=== PATIENT | male | born 1955 | race Two or more races ===

== ENCOUNTER 2023-07-02 21:07 | Emergency (ER) | payer SELFPAY ==
[~2023-07-02] VITALS: Ht 162.6 cm; Wt 61.1 kg
[2023-07-02 22:19] LABS: Basophils # (auto) 0 10 ^3/uL (0-0.2); Basophils % (auto) 0.5 % (0.0-2.0); Eosinophils # (auto) 0 10 ^3/uL (0-0.8); Eosinophils % (auto) 0.3 % (0.0-7.0); Hematocrit 40.7 % (41.0-53.0); Hemoglobin 12.9 g/dL (13.5-17.5); Lymphocytes # (auto) 0.5 10 ^3/uL (0.4-5.4); Lymphocytes % (auto) 11.7 % (10.0-50.0); Mean Corpuscular Hemoglobin 27.6 pg (28.0-32.0); Mean Corpuscular Hgb Conc. 31.8 g/dL (32.0-36.0); Monocytes # (auto) 0.4 10 ^3/uL (0-1.3); Monocytes % (auto) 9.8 % (0.0-12.0); Neutrophils # (auto) 3.5 10 ^3/uL (1.6-8.6); Neutrophils % (auto) 77.7 % (37.0-80.0); Nucleated Red Blood Cells % 0.1 %; Red Blood Cells 4.68 10^6/uL (4.5-5.90); Red Cell Distribution Width 15.7 % (11.8-14.3); White Blood Cell 4.5 10^3/uL (4.4-10.8)
[2023-07-02] MEDS: ACETAMINOPHEN 500 MG TAB PO ONE (22:29)
[2023-07-02] MEDS: DexAMETHasone SOD PHOS 10MG/1ML VIAL INJ IM ONE (22:29)
[2023-07-02] MEDS: ALBUTEROL SULF 2.5 MG/0.5ML(0.5%) NEB SOLN NEB ONE (22:30)
[2023-07-02] MEDS: IPRATROPIUM BROM 0.5 MG/2.5ML INH SOL NEB ONE (22:30)
[2023-07-02 22:32] LABS: Chloride 102 mmol/L (98-107); Potassium 4.4 mmol/L (3.5-5.1); Sodium 135 mmol/L (136-145)
[2023-07-02 22:33] LABS: Anion Gap 8 (5-15); Calcium 9.3 mg/dL (8.5-10.1); Carbon Dioxide 25 mmol/L (20-30)
[2023-07-02 22:38] LABS: BUN/Creatinine Ratio 21.6 (10.0-20.0); Blood Urea Nitrogen 19 mg/dL (9-23); Glucose 111 mg/dL (74-106)
[2023-07-02 22:39] LABS: Blood Alcohol < 3.0 mg/dL (<10)
[2023-07-02 23:07] LABS: COVID19 ANTIGEN SOFIA FIA NEGATIVE (NEGATIVE)
[2023-07-02 23:08] LABS: Rapid Influenza B Negative (Negative)
[2023-07-02 23:16] LABS: Rapid Influenza A Positive (Negative)
[2023-07-03] MEDS ORDERED: ACET500T58 PO (01:25)
[2023-07-03] MEDS ORDERED: TAMIFLU PO (01:25)
[2023-07-03] MEDS ORDERED: IBUP-1455 PO (01:25)
[2023-07-03] MEDS ORDERED: ZOFR4T PO (01:25)
[2023-07-03] MEDS: OSELTAMIVIR 75 MG CAP PO ONE (01:34)
[2023-07-03 04:06] VITALS: BP 107/63; PULSE 79; RESP 17; TEMP 97.7; O2SAT 94
[2023-07-04] MEDS ORDERED: PRED20TA2 PO (03:57)
[2023-07-04] MEDS ORDERED: BENZ200C64 PO (03:57)
[2023-07-04] MEDS ORDERED: ALBU108A5 IN (03:57)
== END 2023-07-03 04:07 | disposition home or self-care (01) ==
LOC: ER 21:07
DX: J10.1 Influenza due to other identified influenza virus with other respiratory manifestations (principal); F17.210 Nicotine dependence, cigarettes, uncomplicated; Z20.822 Contact with and (suspected) exposure to COVID-19
CPT/HCPCS: 36415; 71045; 80048; 80320; 83605; 83880; 85025; 87426; 87804; 93005; 94640; 96372; 99285; J1100; J7644